=== PATIENT | male | born 1935 ===

== ENCOUNTER 2025-01-16 12:30 | Outpatient (CLI) | payer MEDICARE | END 2025-01-16 12:31 | disposition home or self-care (01) | LOC: PET 12:30 | PROVIDERS: ATTEND Urology | DX: C61 Malignant neoplasm of prostate (principal); R97.21 Rising PSA following treatment for malignant neoplasm of prostate; N42.9 Disorder of prostate, unspecified | CPT/HCPCS: 78815; A9595 ==